=== PATIENT | female | born 1975 | race Caucasian/White ===

== ENCOUNTER 2021-09-28 06:50 | Day surgery (SDC) | payer BC ==
[2021-09-28] MEDS ORDERED: Ketamine 200 MG/20 ML MDV IV ONE (06:51)
[2021-09-28] MEDS ORDERED: Propofol 200 MG/20 ML SDV IV ONE (06:51)
[2021-09-28] MEDS ORDERED: Sodium Chloride 0.9% 10 ML Syringe FLUSH PRN (07:00)
[2021-09-28] MEDS: Lactated Ringers 1,000 ML IV SCH (07:24)
[2021-09-28] MEDS ORDERED: Lidocaine 2% Jelly 5 ML Tube ONE (07:50)
[2021-09-28] MEDS ORDERED: Midazolam 1 MG/ML 2 ML SDV ONE (08:04)
[2021-09-28] MEDS ORDERED: Propofol 200 MG/20 ML SDV ONE ×2 (08:04→08:49)
[2021-09-28] MEDS ORDERED: Glycopyrrolate 0.2 MG/ML SDV ONE (08:05)
[2021-09-28] MEDS ORDERED: Ketamine 200 MG/20 ML MDV ONE (08:05)
[2021-09-28] MEDS: Lidocaine 2% Jelly 5 ML Tube MUCMEM ONE (08:17)
[2021-09-28] MEDS ORDERED: ceFAZolin 1 GM Vial ONE (08:35)
== END 2021-09-28 11:05 | disposition home or self-care (01) ==
LOC: KA.SDS 06:50
PROVIDERS: ATTEND Family Medicine
DX: N30.21 Other chronic cystitis with hematuria (principal); N32.89 Other specified disorders of bladder; L29.8 Other pruritus
CPT/HCPCS: 00910; 81025; J0690; J2250; J2704; J3490; J7120